=== PATIENT | male | born 1975 | race Caucasian/White ===

== ENCOUNTER 2018-02-20 14:33 | Emergency (ER) | payer SELFPAY ==
[~2018-02-20] VITALS: Ht 190.5 cm; Wt 108.9 kg
[2018-02-20 15:45] VITALS: BP 149/79
[2018-02-20] MEDS ORDERED: METH4TAB2 PO (16:07)
[2018-02-20] MEDS ORDERED: DICL50TA4 PO (16:07)
[2018-02-20] MEDS ORDERED: CYCL10TA2 PO (16:07)
--- NOTE | 2018-02-20 16:08 | PHYS DOC ---
Adult General Chief Complaint Chief Complaint: BACK PAIN OR INJURY HPI HPI Patient is a 42 year old male with history of chronic back, shoulders, mid and low back pain who presents today complaining of exacerbation of chronic pain. Patient states the pain radiates to bilateral lower extremities which is chronic. Patient states the pain is from a injury he sustained over 10 years ago. Patient describes the pain as sharp and constant for the last couple days. It's the pain and out of 10. He states is currently at [facility] drug [facility] and cannot take any narcotics. Patient denies any new injuries. Denies any loss of bowel bladder function. Review of Systems Review of Systems Constitutional: Denies fever or chills [] : Denies dysuria or hematuria [] Musculoskeletal: Reports chronic back, shoulders, mid and low back pain Integument: Denies rash or skin lesions [] Neurologic: Denies headache, focal weakness or sensory changes [] All other systems were reviewed and found to be within normal limits, except as documented in this note. Physical Exam Physical Exam Constitutional: Well developed, well nourished, no acute distress, non-toxic appearance. [] Abdomen: Bowel sounds normal, soft, no tenderness, no masses, no pulsatile masses. [] Skin: Warm, dry, no erythema, no rash. [] Back: No tenderness, no CVA tenderness. [] Extremities: No tenderness, no cyanosis, no clubbing, ROM intact, no edema. [] Neurologic: Alert and oriented X 3, normal motor function, normal sensory function, no focal deficits noted. [] Psychologic: Affect normal, judgement normal, mood normal. [] EKG EKG [] Radiology/Procedures Radiology/Procedures [] Course & Med Decision Making Course & Med Decision Making Pertinent Labs and Imaging studies reviewed. (See chart for details) His is a 42-year-old male patient presenting to the ED today with chronic back, shoulders, mid and low back pain. Patient is currently in a drug rehabilitation center. I talked to patient at length. Informed patient he cannot take any narcotics considering his pain is chronic and he is also in a drug rehabilitation center. Patient was discharged with Medrol Dosepak, diclofenac and cyclobenzaprine. Provided the pain clinic for follow-up as an outpatient. Dragon Disclaimer Dragon Disclaimer This electronic medical record was generated, in whole or in part, using a voice recognition dictation system. Departure Departure Impression: Primary Impression: Chronic back pain Disposition: 01 HOME, SELF-CARE Condition: STABLE Referrals: UNKNOWN PCP NAME (PCP) BECKA MAJOR MD follow-up in 1-2 weeks Patient Instructions: Back Pain, Adult, [id number] Additional Instructions: You were evaluated in the emergency room for chronic pain. Take the prescribed medications as ordered. We provided you a pain clinic, follow-up with them as needed. Scripts Methylprednisolone (MEDROL) 4 Mg Tab.ds.pk 1 PKG PO UD, #1 PKG Prov: DUNIA VANN APRN 02/20/18 Cyclobenzaprine Hcl (CYCLOBENZAPRINE HCL) 10 Mg Tablet 1 TAB PO TID, #30 TAB Prov: DUNIA VANN APRN 02/20/18 Diclofenac Sodium (DICLOFENAC SODIUM) 50 Mg Tablet.dr 1 TAB PO BID, #20 TAB 0 Refills Prov: DUNIA VANN APRN 02/20/18 Problem Qualifiers Primary Impression: Chronic back pain Back pain location: back pain in other location Qualified Codes: M54.9 - Dorsalgia, unspecified; G89.29 - Other chronic pain DUNIA VANN APRN Feb 20, 2018 16:07
== END 2018-02-20 16:12 | disposition home or self-care (01) ==
LOC: ER 14:33
DX: G89.29 Other chronic pain (principal); M54.5 Low back pain; M25.511 Pain in right shoulder; M25.512 Pain in left shoulder
CPT/HCPCS: 99283